=== PATIENT | male | born 1985 | race Caucasian/White ===

== ENCOUNTER 2020-11-10 11:27 | Emergency (ER) | payer OTHER ==
[~2020-11-10 11:27] MED LIST: ZOFRAN8 MG PO
[2020-11-10 12:12] LABS: BASOPHIL 0.8 % (0-2); EOSINOPHIL 0.6 % (0-5); HCT 48.4 % (42.0-52.0); HGB 17.3 g/dl (13.2-18.0); LYMPHOCYTE 30.9 % (15-48); MCHC 35.7 g/dL (32.0-36.0); MCV 89.5 fL (78.0-100.0); MONOCYTE 6.4 % (0-12); MPV 11.5 fL (6.0-9.5); NEUTROPHIL 60.8 % (41-80); NRBC 0; PLT 194 K/uL (150-400); RBC 5.41 M/uL (4.70-6.00); RDW 11.9 % (11.5-14.0); WBC 6.2 K/uL (4.0-10.5)
[2020-11-10 12:21] LABS: ALBUMIN 4.7 g/dL (3.4-5.0); BILIRUBIN - TOTAL 0.6 mg/dL (0.2-1.0); BUN/CREAT RATIO (CALC) 14.6 RATIO; CREATININE 0.96 mg/dL (0.67-1.17); GLOBULIN (CALCULATION) 4.4 g/dL; TOTAL PROTEIN 9.1 g/dL (6.4-8.2)
[2020-11-10 12:50] LABS: INR 1.05 (0.9-1.2); PTT 26.8 SECONDS (22.2-34.7)
== END 2020-11-10 14:40 | disposition home or self-care (01) ==
LOC: FER 11:27
PROVIDERS: Emergency Medicine
DX: F41.9 Anxiety disorder, unspecified (principal); I10 Essential (primary) hypertension; Z79.899 Other long term (current) drug therapy
CPT/HCPCS: 36415; 70450; 71045; 80053; 84484; 85025; 85610; 85730; 93005

== ENCOUNTER 2022-01-06 23:31 | Emergency (ER) | payer OTHER ==
[2022-01-07 01:30] LABS: BASOPHIL 0.6 % (0-2); HCT 46.9 % (42.0-52.0); HGB 16.3 g/dl (13.2-18.0); LYMPHOCYTE 26.3 % (15-48); MCH 31.7 pg (25.0-31.0); MCHC 34.8 g/dL (32.0-36.0); MCV 91.2 fL (78.0-100.0); MPV 12.2 fL (6.0-9.5); NEUTROPHIL 61.7 % (41-80); NRBC 0; PLT 181 K/uL (150-400); RBC 5.14 M/uL (4.70-6.00)
[2022-01-07 01:45] LABS: ALBUMIN 3.8 g/dL (3.4-5.0); BILIRUBIN - TOTAL 0.5 mg/dL (0.2-1.0); BUN/CREAT RATIO (CALC) 19.3 RATIO; CREATININE 0.83 mg/dL (0.67-1.17); GLOBULIN (CALCULATION) 3.7 g/dL; POTASSIUM 3.6 mmol/L (3.5-5.1); TOTAL PROTEIN 7.5 g/dL (6.4-8.2)
== END 2022-01-07 02:55 | disposition home or self-care (01) ==
LOC: FER 23:31
PROVIDERS: Emergency Medicine
DX: I10 Essential (primary) hypertension (principal); Z88.8 Allergy status to other drugs, medicaments and biological substances; Z79.899 Other long term (current) drug therapy
CPT/HCPCS: 36415; 80053; 84484; 85025; 86803; 93005; J7030